=== PATIENT | female | born 1985 | race Caucasian/White ===

== ENCOUNTER 2019-03-12 15:54 | Emergency (ER) | payer MEDICAID, SELFPAY ==
[2019-03-12 15:56] VITALS: BP 122/71; PULSE 81; RESP 20; TEMP 36.4; O2SAT 96; BMI 31.6
--- NOTE | 2019-03-12 16:42 | ED.DCSUM_ITS ---
- ER Visit Summary Date of Service: 03/12/19 Chief Complaint: Cough and wheezing History of Present Illness: The patient is a 33 F 3 of asthma. Patient states the last week she has had a cough of clear to green sputum. She is out of both her inhaler and nebulizer treatments. She is currently on any steroids. Currently does not have a primary care physician. She denies any fever chills. No hemoptysis. No leg pain or swelling. Physical Examination: Young female no acute distress. Vital signs are stable and afebrile. Pulse is 96% room air no signs of hypoxia. HEENT exam unremarkable. TMs normal. Neck nontender no lymphadenopathy. Lungs prolonged expiratory phase. And expiratory wheezing. No rales or rhonchi. Equal symmetrical. Heart regular rhythm rate about 80 no murmur. Abdomen soft nontender. Normal bowel sounds no peritoneal signs. Patient moving all 4 extremities. Calves nontender without edema or cords. Neurologically she is awake alert with no focal motor deficits. Test Results: None Emergency Department Course and Treatment: Viral bronchitis with exacerbation of asthma. Neb aerosol. Prednisone 60 mg. I do not think she needs a chest x- ray. Treatment Plan: As of daily for milligrams a day for 1 week. Albuterol inhaler for her wheezing. Albuterol treatments for home nebulizer. Follow-up with local primary care physician. Disposition: Discharge Impression: Acute viral bronchitis Acute exacerbation of asthma This note was generated with GetSet dictation software. It may contain incorrect words, spelling, and punctuation that were not noted in review of the chart prior to signing ED Disposition - Plan for ED Patient: Referrals: Care Physician,No Primary [Primary Care Provider] -
--- NOTE | 2019-03-12 16:44 | ED.DEP ---
ED Disposition - Plan for ED Patient: Instructions: ASTHMA, Acute (Adult), BRONCHITIS, No Antibiotic (Adult) Prescriptions: Prednisone [Deltasone] 40 mg PO DAILY #7 tab Prescription Printed Albuterol Aerosols [Ventolin Aerosols] 2.5 mg INHALATION Q2H PRN PRN 7 Days #30 vial.neb. PRN Reason: Asthma Prescription Printed Albuterol Inhaler [Ventolin Hfa] 1 - 2 puff INHALATION Q4H PRN PRN #1 inhaler PRN Reason: Asthma Prescription Printed Referrals: Chris Vidal MD [STAFF PHYSICIAN] - 3-5 Days if not improving Additional Instructions: Prednisone 40 g a day till gone. Use your inhaler or nebulizer as needed. Follow-up with local primary care physician. Return if worse. Stop smoking!.
[2019-03-12 16:49] VITALS: PULSE 77; RESP 18
[2019-03-12] MEDS: Ipratropium/Albuterol Sulfate 3 ML AMPUL.NEB INHALATION (16:49)
[2019-03-12] MEDS: predniSONE 20 MG Tablet 60 MG PO (16:51)
[2019-03-12 16:59] VITALS: BP 116/73; PULSE 77; RESP 18; O2SAT 99
== END 2019-03-12 17:04 | disposition home or self-care (01) ==
LOC: ED 16:49
PROVIDERS: Emergency Provider Emergency Medicine
DX: J20.8 Acute bronchitis due to other specified organisms (principal); J45.901 Unspecified asthma with (acute) exacerbation; Z72.0 Tobacco use
CPT/HCPCS: 94640; 99283

== ENCOUNTER 2021-09-30 21:48 | Emergency (ER) | payer MEDICAID, SELFPAY ==
[2021-09-30 21:51] VITALS: BP 114/63; PULSE 68; RESP 18; TEMP 35.7; O2SAT 99; BMI 34.9
--- NOTE | 2021-09-30 22:47 | ED.VIS.DENTA ---
HPI History of Present Illness Chief Complaint: Dental Informant: patient Narrative Narrative: Patient complains of right upper jaw dental pain and a little bit of swelling of her cheek. She states her teeth have been worn off for a long time but the swelling to started over the last 2 days. No trouble eating. No nausea or vomiting. Only meds are taltz and albuterol. She is not on prednisone now. Cold liquids makes the pain worse. Nothing makes it better. PFSH PFSH Home Medications albuterol sulfate 2.5 mg (3 mL) inhalation Q2H PRN PRN Asthma 7 days ##30 03/12/19 [Rx Last Taken Unknown] albuterol sulfate 2.5 mg inhalation Q4H PRN PRN Sob &/Or Wheezing 03/12/19 [History Last Taken Unknown] albuterol sulfate 90 mcg/actuation aerosol inhaler 1 - 2 puff inhalation Q4H PRN PRN Asthma ##1 03/12/19 [Rx Last Taken Unknown] prednisone 20 mg tablet 40 mg PO DAILY #7 tabs 03/12/19 [Rx Last Taken Unknown] amoxicillin 500 mg tablet 500 mg PO TID #30 tabs 09/30/21 [Rx Last Taken Unknown] Allergy/AdvReac Type Severity Reaction Status Date / Time onion Allergy Anaphylaxis Verified 09/30/21 21:51 Sulfa (Sulfonamide Allergy Hives Verified 09/30/21 21:51 Antibiotics) sulfamethoxazole Allergy Hives Verified 09/30/21 21:51 [From Bactrim] tramadol Allergy Hives Verified 09/30/21 21:51 trimethoprim [From Bactrim] Allergy Hives Verified 09/30/21 21:51 ciprofloxacin [From Cipro] AdvReac Other Verified 09/30/21 21:51 clindamycin AdvReac Nausea Verified 09/30/21 21:51 Social History Smoking Status: Light Smoker (<10/day) ROS ROS ED Constitutional Constitutional ED: Denies fever(s) or sweats Eyes Eyes: Denies blurry vision or change in vision ENT ENT ED: Reports other Details: See history of present illness ; Denies ear pain, rhinorrhea or sore throat Cardiovascular Cardiovascular: Denies chest pain Respiratory/Chest Respiratory/Chest: Denies cough or dyspnea Gastrointestinal Gastrointestinal: Denies nausea or vomiting Musculoskeletal Musculoskeletal: Denies neck pain Integumentary Denies rash Hematologic/Lymphatic Hematologic/Lymphatic: Denies lymphadenopathy Allergic/Immunologic Allergic/Immunologic ED: Denies urticaria EXAM Physical Exam Const Vital Signs: 09/30/21 21:51 Temperature 96.2 F L Temperature Source Temporal Pulse Rate 68 Respiratory Rate 18 Blood Pressure 114/63 Blood Pressure Mean 80 Pulse Ox 99 Oxygen Delivery Method Room Air Positive well nourished and well developed General Appearance ED: well developed and NAD HEENT HEENT Narrative: Patient does have just a little bit of flattening of the nasolabial fold on the right compared to the left. Patient has erosion of teeth 6 and 7. There is obvious dental caries. There is erythema around this. I do not see a drainable abscess though. No sign of Ludewig's angina. Oropharynx is otherwise normal. Eyes EOMs intact bilaterally Eyes Narrative: No sinus tenderness Neck no lymphadenopathy Resp normal respiratory effort Psych mental status grossly normal Skin no rashes or lesions noted MDM MDM MDM Narrative Medical decision making narrative: Patient's exam is consistent with dental abscess. She states she has used amoxicillin in the past that has worked very well and not caused her any problems. We will start this now. She already called a dentist in [place] and is on a wait list. They states that it is probably going to be at least a week until she gets in. I will give her a dental resource sheet here in case this provides some benefit. Discharge Plan Triage Chief Complaint: Dental ED Provider: Scottie Cho Dx/Rx/DC Orders Clinical Impression: Dental abscess Instructions: Dental Abscess Prescriptions: New amoxicillin 500 mg tablet 500 mg PO TID Qty: 30 0RF No Action albuterol sulfate 2.5 MG/3 ML solution for nebulization 2.5 mg inhalation Q4H PRN PRN (Reason: Sob &/Or Wheezing) prednisone 20 MG tablet 40 mg PO DAILY Qty: 7 0RF Rx Instructions: With food albuterol sulfate 2.5 MG/3 ML solution for nebulization 2.5 mg inhalation Q2H PRN PRN (Reason: Asthma) 7 Days Qty: 30 1RF albuterol sulfate 1 INHALER inhaler 1 - 2 puff inhalation Q4H PRN PRN (Reason: Asthma) Qty: 1 0RF Primary Care Provider: Care Physician,No Primary Referrals: Care Physician,No Primary [Primary Care Provider] - Activity Restrictions/Additional Instructions: Follow-up with dentist as soon as possible. Disposition Disposition: Home, Self Care
[2021-09-30 23:00] VITALS: BP 128/76; PULSE 70; O2SAT 97
[2021-09-30] MEDS: AMOXICILLIN 500 MG CAPSULE PO (23:00)
== END 2021-09-30 23:02 | disposition home or self-care (01) ==
PROVIDERS: Emergency Provider Emergency Medicine; PCP Student in an Organized Health Care Education/Training Program; Visit Provider Emergency Medicine
DX: K04.7 Periapical abscess without sinus (principal); F17.200 Nicotine dependence, unspecified, uncomplicated
CPT/HCPCS: 99283

== ENCOUNTER 2022-07-09 19:53 | Emergency (ER) | payer MEDICAID, SELFPAY ==
[2022-07-09 19:54] VITALS: BP 127/55; PULSE 82; RESP 18; TEMP 36.4; O2SAT 97; BMI 34.4
--- NOTE | 2022-07-09 20:05 | RAD_ITS ---
INDICATION: PAIN EXAMINATION/TECHNIQUE: X-RAY - RIGHT XR Ankle Min 3 Views 3 VIEWS COMPARISON: None. FINDINGS: No acute fracture or dislocation. No destructive bone changes. Joint spaces are well-maintained. Normal alignment. Soft tissues are unremarkable. No radiopaque foreign body or soft tissue gas. RAD/Ankle min 3 Views IMPRESSION: No acute findings. Electronically Signed: Ana Schmidt MD at 20:56 EDT Reading Location ID and State: [id number] / Tel , Service support ,
--- NOTE | 2022-07-09 22:28 | EDS_ITS ---
HPI History of Present Illness HPI Narrative: Patient presents with right ankle pain and swelling that has been getting worse over the past 2 days. Patient denies any trauma or injury. Patient states it is gradually gotten worse. Patient states it is constant. Patient describes the pain as dull but stabbing at times. Patient states nothing makes it better nothing makes it worse. Patient denies any paresthesias or weakness. Patient states the pain is mainly over the medial aspect of the right ankle. Patient denies any calf pain. Patient denies any fevers or chills. Patient denies any redness. Chief Complaint: Lower Extremity Injury Informant: patient Onset/Context/Timing Onset: Days (2) Context: Gradual Onset Timing: Continuous Quality of Pain: Dull and Stabbing Location: Medial aspect right ankle Worsened by: Nothing Relieved by: Nothing Associated Symptoms Associated Symptoms: Negative for Parasthesia, Weakness or Loss of Funtion [facility] History (Updated 07/09/22 @ 22:[address] Jean Lynn DO) Asthma Psoriasis Home Medications albuterol sulfate 90 mcg/actuation aerosol inhaler 1 - 2 puff inhalation Q4H PRN PRN Asthma ##1 03/12/19 [Rx Last Taken Unknown] ixekizumab 80 mg/mL subcutaneous auto-injector (Taltz Autoinjector) See Rx Instructions .Route .COMPLEX 07/09/22 [History Last Taken Unknown] Allergy/AdvReac Type Severity Reaction Status Date / Time onion Allergy Anaphylaxis Verified 07/09/22 19:56 Sulfa (Sulfonamide Allergy Hives Verified 07/09/22 19:56 Antibiotics) sulfamethoxazole Allergy Hives Verified 07/09/22 19:56 [From Bactrim] tramadol Allergy Hives Verified 07/09/22 19:56 trimethoprim [From Bactrim] Allergy Hives Verified 07/09/22 19:56 ciprofloxacin [From Cipro] AdvReac Other Verified 07/09/22 19:56 clindamycin AdvReac Nausea Verified 07/09/22 19:56 Surgical History (Updated 07/09/22 @ 22:[address] Jean Lynn, DO) History of section History of tonsillectomy and adenoidectomy Hx of dilation and curettage Hx of tympanostomy tubes S/P foot surgery, left Social History Smoking Status: Light Smoker (<10/day) ROS ROS ED Constitutional Constitutional ED: Denies chills or fever(s) Eyes Eyes: Denies blurry vision or change in vision ENT ENT ED: Denies rhinorrhea or sore throat Cardiovascular Cardiovascular: Denies chest pain or palpitations Respiratory/Chest Respiratory/Chest: Denies cough or dyspnea Gastrointestinal Gastrointestinal: Denies nausea or vomiting Genitourinary Genitourinary ED: Denies dysuria or hematuria Musculoskeletal Musculoskeletal: Reports neck pain; Denies back pain Integumentary Denies abscess or rash Neurologic Neurologic: Denies headache(s) or weakness Allergic/Immunologic Allergic/Immunologic ED: Denies mouth swelling or urticaria EXAM Physical Exam Const Vital Signs: 07/09/22 19:54 Temperature 97.6 F L Temperature Source Temporal Pulse Rate 82 Respiratory Rate 18 Blood Pressure 127/55 H Blood Pressure Mean 79 Pulse Ox 97 Oxygen Delivery Method Room Air Positive well nourished and well developed General Appearance ED: well developed and NAD HEENT Reports moist mucous membranes Neck full ROM and supple Extremity Extremity Narrative: There is tenderness over the medial aspect of the right ankle. There is no edema or ecchymosis. There is no erythema or warmth. There is no bony crepitance or step-off. Range of motion was slightly limited in all motions of the right ankle secondary to pain. Strength is 5/5 bilaterally in the lower extremities. Pedal pulses are equal bilaterally. Sensation was intact to light touch in all digits. Capillary refill was less than 2 seconds in all digits. Neuro oriented x3, CN's II-XII intact bilaterally, moves all extremities and no sensory deficits noted Sensorium / Orientation: alert Motor Exam: strength 5/5 throughout Psych mental status grossly normal MDM MDM MDM Narrative Medical decision making narrative: Differential diagnosis includes occult fracture, sprain, tendinitis, and soft tissue swelling. X-rays of the right ankle will be obtained to assess for occult fracture. Radiography Diagnostic Testing: Clinical Impression(s) from Imaging Studies Ankle X-Ray 07/09/22 20:05 IMPRESSION: No acute findings. Electronically Signed: Ana Schmidt MD at 20:56 EDT Reading Location ID and State: [id number] / Tel , Service support , X-rays of the right ankle were obtained. There are 3 views. On my independent interpretation, there is no acute fracture or dislocation. There is no soft tissue swelling. Radiologist also interpreted the x-rays and agrees. Treatment and Re-Evaluation Narrative: Smoking cessation was discussed. Patient was advised of her findings. Patient was given an Aircast. Patient was instructed to ice and elevate the right ankle. Patient was instructed to take Tylenol or ibuprofen as needed for pain. I do not feel the patient requires prescription analgesics at this time. Patient was instructed to follow-up with her primary care physician in 5 to 7 days. Patient understood and was agreeable with the plan. All questions were answered. Discharge Plan Triage Chief Complaint: Lower Extremity Injury ED Provider: Jean Lynn Dx/Rx/DC Orders Clinical Impression: Right ankle sprain Instructions: ED Ankle Sprain (Adult) Prescriptions: No Action albuterol sulfate 1 INHALER inhaler 1 - 2 puff inhalation Q4H PRN PRN (Reason: Asthma) Qty: 1 0RF Taltz Autoinjector 80 mg/mL auto-injector See Rx Instructions .ROUTE .COMPLEX Rx Instructions: 80 mg subcutaneously monthly Primary Care Provider: Fabricio Peraza Referrals: Fabricio Peraza DO [Primary Care Provider] - 5-7 Days Disposition Disposition: Home, Self Care
== END 2022-07-09 23:05 | disposition home or self-care (01) ==
PROVIDERS: Emergency Provider Emergency Medicine; PCP Student in an Organized Health Care Education/Training Program; Visit Provider Emergency Medicine
DX: S93.401A Sprain of unspecified ligament of right ankle, initial encounter (principal); F17.200 Nicotine dependence, unspecified, uncomplicated; J45.909 Unspecified asthma, uncomplicated; X58.XXXA Exposure to other specified factors, initial encounter
CPT/HCPCS: 73610; 99283

== ENCOUNTER 2023-09-13 20:49 | Emergency (ER) | payer MEDICAID, SELFPAY ==
[2023-09-13 20:50] VITALS: BP 117/95; PULSE 98; RESP 16; TEMP 36.1; O2SAT 98; BMI 36.2
--- NOTE | 2023-09-13 21:33 | RAD_ITS ---
STUDY: X-RAY - RIGHT FOOT CLINICAL: Female, 38 years old. swelling, pain TECHNIQUE: 2 view(s) of the foot. COMPARISON: None. FINDINGS: Normal talus, calcaneus, and tarsal bones. Normal visualized subtalar, talonavicular, calcaneocuboid, tarsal and tarsometatarsal articulations. Normal metatarsi. Normal metatarsophalangeal joint of the great toe. Normal tibial and fibular sesamoid bones. Normal interphalangeal joint of the great toe. Normal phalanges of the great toe. Normal second through fifth metatarsophalangeal joints. Normal interphalangeal joints and phalanges of the lesser toes. The soft tissue structures are unremarkable. RAD/Foot min 3 Views IMPRESSION: Normal x-ray examination of the foot. Electronically Signed: Kin Garica MD at 21:59 EDT ,
--- NOTE | 2023-09-13 21:40 | RAD_ITS ---
STUDY: X-RAY - RIGHT ANKLE REASON FOR EXAM: Female, 38 years old. swelling, pain TECHNIQUE: 3 view(s) of the ankle. COMPARISON: None. FINDINGS: Normal visualized distal tibia and fibula. Normal medial and lateral malleoli. Normal tibiotalar articulation and ankle mortise. Normal visualized talus and calcaneus. The visualized subtalar, talonavicular, calcaneocuboid and tarsal articulations are normal. Mild soft tissue swelling overlying the lateral malleolus RAD/Ankle min 3 Views IMPRESSION: Mild lateral malleolus sprain. No acute fracture or dislocation. Electronically Signed: Kin Garcia MD at 22:01 EDT ,
--- NOTE | 2023-09-13 21:51 | ED.VIS.LOWEX ---
HPI <KATRINA Navarro - Last Filed: 09/13/23 22:05> History of Present Illness Chief Complaint: Lower Extremity Injury Narrative Narrative: Patient presenting today with pain and swelling to her right foot that she has had intermittently over the past 2 years. Her symptoms worsened on Thursday. She has seen a ski patroller for this and was told that she likely had a ligament injury to her right ankle. She does spend a lot of time standing on her feet at work. She has been trying to wrap her foot and ankle to help with the swelling and keep elevated when she can. She has been taking naproxen with minimal relief of her pain. She denies any injury to her RLE, she is able to ambulate. [facility] <KATRINA Navarro - Last Filed: 09/13/23 22:05> [facility] Medical History Asthma Psoriasis Home Medications ?Medication ?Instructions ?Recorded ?Last Taken ?Type albuterol sulfate 90 mcg/actuation 1 - 2 puff inhalation Q4H PRN PRN 03/12/19 Unknown Rx aerosol inhaler Asthma ##1 ixekizumab 80 mg/mL subcutaneous See Rx Instructions .Route .COMPLEX 07/09/22 Unknown History auto-injector (Taltz Autoinjector) meclizine 25 mg tablet 25 mg PO TID PRN dizziness #30 tabs 08/20/23 Unknown Rx triamcinolone acetonide 55 mcg 2 spray intranasal .Twice daily 08/20/23 Unknown Rx nasal spray aerosol (Nasacort) #16.9 mL Allergy/AdvReac Type Severity Reaction Status Date / Time onion Allergy Anaphylaxis Verified 09/13/23 20:52 Sulfa (Sulfonamide Allergy Hives Verified 09/13/23 20:52 Antibiotics) sulfamethoxazole (From Allergy Hives Verified 09/13/23 20:52 Bactrim) tramadol Allergy Hives Verified 09/13/23 20:52 trimethoprim (From Bactrim) Allergy Hives Verified 09/13/23 20:52 ciprofloxacin (From Cipro) AdvReac Other Verified 09/13/23 20:52 clindamycin AdvReac Nausea Verified 09/13/23 20:52 Surgical History History of section History of tonsillectomy and adenoidectomy Hx of tympanostomy tubes Hx of dilation and curettage S/P foot surgery, left Social History Smoking Status: Light Smoker (<10/day) ROS <KATRINA Navarro - Last Filed: 09/13/23 22:05> ROS ED Constitutional Constitutional ED: Denies chills or fever(s) Musculoskeletal Musculoskeletal: Reports arthralgias Integumentary Denies Abrasions Neurologic Neurologic: Denies paresthesias EXAM <KATRINA Navarro - Last Filed: 09/13/23 22:05> Physical Exam Const Vital Signs: 09/13/23 20:50 Temperature 96.9 F L Temperature Source Temporal Pulse Rate 98 Respiratory Rate 16 Blood Pressure 117/95 H Blood Pressure Mean 102 Pulse Ox 98 Oxygen Delivery Method Room Air Positive well nourished, well developed and no apparent distress General Appearance ED: well developed HEENT Reports normocephalic and head/scalp atraumatic Mouth ED: Yes moist mucous membranes normal Eyes PERRL and EOMs intact bilaterally Neck full ROM and supple Chest Wall inspection of chest normal Resp normal respiratory effort and clear to auscultation bilaterally Cardio regular rate and regular rhythm Back/Spine normal ROM and normal to inspection Extremity Extremity Narrative: Swelling to the dorsum of the right foot and left medial malleolus, full range of motion to the right ankle. Right DP pulse 2+, good capillary refill, sensation intact. Neuro oriented x3, CN's II-XII intact bilaterally, moves all extremities, no focal motor deficits and no sensory deficits noted Sensorium / Orientation: awake and alert Psych mental status grossly normal and thought process normal Skin no rashes or lesions noted and no wounds <Dr. Yara De Luna DO - Last Filed: 09/14/23 00:39> Physical Exam Const Vital Signs: 09/13/23 20:50 Temperature 96.9 F L Temperature Source Temporal Pulse Rate 98 Respiratory Rate 16 Blood Pressure 117/95 H Blood Pressure Mean 102 Pulse Ox 98 Oxygen Delivery Method Room Air MDM <KATRINA Navarro - Last Filed: 09/13/23 22:05> MDM MDM Narrative Medical decision making narrative: Patient presenting with pain and swelling to the right foot and ankle she has had off and on for the past 2 years. She has seen podiatry for this in the past and was told it was likely a ligament injury. No recent injury to her foot or ankle. No pain to the right calf or history of DVT, she has a Wells criteria for DVT score of 0, therefore low suspicion for DVT. X-ray of the foot and ankle will be obtained to rule out fracture. Patient given ibuprofen for pain. X-ray shows a medial malleolus sprain without bony injury. RICE instructions discussed, I will give her a referral here for podiatry. She can alternate Tylenol and ibuprofen as needed for pain. She will be discharged home in stable condition. Radiography Diagnostic Testing: Clinical Impression(s) from Imaging Studies Foot X-Ray 09/13/23 21:33 IMPRESSION: Normal x-ray examination of the foot. Electronically Signed: Kin Garcia MD at 21:59 EDT , Ankle X-Ray 09/13/23 21:40 IMPRESSION: Mild lateral malleolus sprain. No acute fracture or dislocation. Electronically Signed: Kin Garcia MD at 22:01 EDT , <Dr. Yara De Luna, DO - Last Filed: 09/14/23 00:39> [facility] Narrative Medical decision making narrative: Patient presenting with pain and swelling to the right foot and ankle she has had off and on for the past 2 years. She has seen podiatry for this in the past and was told it was likely a ligament injury. No recent injury to her foot or ankle. No pain to the right calf or history of DVT, she has a Wells criteria for DVT score of 0, therefore low suspicion for DVT. X-ray of the foot and ankle will be obtained to rule out fracture. Patient given ibuprofen for pain. X-ray shows a medial malleolus sprain without bony injury. RICE instructions discussed, I will give her a referral here for podiatry. She can alternate Tylenol and ibuprofen as needed for pain. She will be discharged home in stable condition. I have personally performed a face to face assessment of the patient and have reviewed the SAMANTHA Note. I performed a substantive portion of the visit including all aspects of the following. My guthrie findings include: History is Patient is a 38-year-old female presenting with acute worsening of chronic right ankle and foot pain. She has had intermittently over the past 2 years. Had previously seen podiatry of [facility] and told that she had likely ligamentous injury. 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 Patient does have localized swelling to the right lateral malleolus with tenderness in this area. Normal Landeros test. Does have some tenderness with palpation of the arch of the foot as well. She has 2+ DP pulse. X-ray shows soft tissue swelling suggestive of a sprain. Patient is informed of this findings. Is placed in Domenico wrap and given crutches per her request. She will be given referral to [facility] with Dr. Alicea. Discussed NSAID therapy. While patient does have history of psoriasis she does not have any other joint involvement of lower suspicion for psoriatic arthritis. Patient discharged home in stable condition. Other additions or changes: [None] Radiography Diagnostic Testing: Clinical Impression(s) from Imaging Studies Foot X-Ray 09/13/23 21:33 IMPRESSION: Normal x-ray examination of the foot. Electronically Signed: Kin Garcia MD at 21:59 EDT , Ankle X-Ray 09/13/23 21:40 IMPRESSION: Mild lateral malleolus sprain. No acute fracture or dislocation. Electronically Signed: Kin Garcia MD at 22:01 EDT , Discharge Plan Triage Chief Complaint: Lower Extremity Injury ED Midlevel Provider: Alma Baker ED Provider: Yara De Luna Dx/Rx/DC Orders Clinical Impression: Right ankle swelling, Swelling of right foot Instructions: ED Lymphedema Prescriptions: No Action meclizine 25 mg tablet 25 mg PO TID PRN (Reason: dizziness) Qty: 30 0RF triamcinolone acetonide [Nasacort] 55 mcg aerosol,spray 2 spray intranasal .Twice daily Qty: 16.9 0RF Rx Instructions: administer into each nostril albuterol sulfate 1 INHALER inhaler 1 - 2 puff inhalation Q4H PRN PRN (Reason: Asthma) Qty: 1 0RF Taltz Autoinjector 80 mg/mL auto-injector See Rx Instructions .ROUTE .COMPLEX Rx Instructions: 80 mg subcutaneously monthly Stand Alone Forms: ED Work / School Excuse Primary Care Provider: Fabricio Peraza Referrals: Fabricio Peraza DO [Primary Care Provider] - 5-7 Days Vitor Alicea DPM [Med Staff - Active Staff] - 5-7 Days Activity Restrictions/Additional Instructions: Follow-up with podiatry. Alternate Tylenol and ibuprofen for pain and swelling as needed. Keep foot elevated and apply compression to help with swelling. Print Language: Slovenian Disposition Disposition: Home, Self Care Discharge Date/Time: 09/13/23 23:00
[2023-09-13] MEDS: Ibuprofen 600 MG Tablet PO (21:57)
== END 2023-09-13 23:00 | disposition home or self-care (01) ==
LOC: ED 22:05
PROVIDERS: Emergency Provider Emergency Medicine; PCP Student in an Organized Health Care Education/Training Program; Visit Provider Emergency Medicine
DX: M79.89 Other specified soft tissue disorders (principal); M79.671 Pain in right foot; M25.571 Pain in right ankle and joints of right foot; F17.200 Nicotine dependence, unspecified, uncomplicated; J45.909 Unspecified asthma, uncomplicated
CPT/HCPCS: 73610; 73630; 99282